=== PATIENT | female | born 1970 | race Caucasian/White ===

== ENCOUNTER 2016-12-25 11:42 | Inpatient (IN) | payer OTHER ==
[2016-12-25 12:55] VITALS: BMI 30.8
--- NOTE | 2016-12-25 17:37 | HP ---
CIWA Score - CIWA Score Nausea/Vomitin-Mild Nausea/No Vomiting Muscle Tremors: 3 Anxiety: 4-Mod. Anxious/Guarded Agitation: 4-Moderately Restless Paroxysmal Sweats: 1-Minimal Palms Moist Orientation: 1-Uncertain about Date Tacttile Disturbances: 0-None Auditory Disturbances: 0-None Visual Disturbances: 0-None Headache: 0-None Present CIWA-Ar Total Score: 14 Admission ROS BHS - HPI Chief Complaint: withdrawal sx Allergies/Adverse Reactions: Allergies Allergy/AdvReac Type Severity Reaction Status Date / Time No Known Allergies Allergy Verified 12/25/16 16:24 History of Present Illness: 46 years old female with long history of alcohol nicotine marijuana cocaine dependence has asthma and schizoaffective disorder is admitted to detox Exam Limitations: No Limitations - Ebola screening Have you traveled outside of the country in the last 21 days: No Have you had contact with anyone from an Ebola affected area: No Have you been sick,other than usual withdrawal symptoms: No Do you have a fever: No - Review of Systems Constitutional: Changes in sleep, Weight Stable EENT: reports: No Symptoms Reported Respiratory: reports: No Symptoms reported Cardiac: reports: No Symptoms Reported GI: reports: Nausea, Poor Fluid Intake, Abdominal cramping : reports: No Symptoms Reported Musculoskeletal: reports: No Symptoms Reported Integumentary: reports: No Symptoms Reported Neuro: reports: Tremors Endocrine: reports: No Symptoms Reported Hematology: reports: No Symptoms Reported Psychiatric: reports: Judgement Intact, Anxious, Depressed Other Systems: Reviewed and Negative Patient History - Patient Medical History Hx Anemia: No Hx Asthma: Yes (Pt is on MDi) Hx Chronic Obstructive Pulmonary Disease (COPD): No Hx Cancer: No Hx Cardiac Disorders: No Hx Congestive Heart Failure: No Hx Hypertension: No Hx Hypercholesterolemia: No Hx Pacemaker: No HX Cerebrovascular Accident: No Hx Seizures: No Hx Dementia: No Hx Diabetes: No Hx Gastrointestinal Disorders: No Hx Liver Disease: No Hx Genitourinary Disorders: No Hx Sexually Transmitted Disorders: No Hx Renal Disease (ESRD): No Hx Thyroid Disease: No Hx Human Immunodeficiency Virus (HIV): No Hx Hepatitis C: Yes Hx Depression: No Hx Suicide Attempt: Yes (Pt states she tried to overdose in 2016) Hx Bipolar Disorder: No Hx Schizophrenia: Yes - Patient Surgical History Past Surgical History: No - PPD History Previous Implant?: Yes Documented Results: Negative w/o proof Implanted On Prior [facility] Admission?: No PPD to be Administered?: Yes - Reproductive History Patient is a Female of Child Bearing Age (11 -55 yrs old): Yes Last Menstrual Period: 12/10/16 Patient : No - Smoking Cessation Smoking history: Current every day smoker Have you smoked in the past 12 months: Yes Aproximately how many cigarettes per day: 10 Cigars Per Day: 0 Hx Chewing Tobacco Use: No Initiated information on smoking cessation: Yes 'Breaking Loose' booklet given: 12/25/16 - Substance & Tx. History Hx Alcohol Use: Yes Hx Substance Use: Yes Substance Use Type: Alcohol, Cocaine, Marijuana Hx Substance Use Treatment: Yes (2014) - Substances Abused Alcohol Route: Oral Frequency: Daily Amount used: 4 22 oz beers Age of first use: 27 Date of Last Use: 12/25/16 Cocaine Route: Injection Frequency: 1-3 times last 30 days Amount used: 1/2 gram Age of first use: 30 Date of Last Use: 12/23/16 Marijuana/Hashish Route: Smoking Frequency: 1-3 times last 30 days Amount used: 1 blunt Age of first use: 18 Date of Last Use: 12/23/16 Heroin Route: Injection Frequency: 1-3 times last 30 days Amount used: 1 bag Age of first use: 35 Date of Last Use: 12/23/16 Family Disease History - Family Disease History Family Disease History: Heart Disease: Father, Other: Sister (legally blind) Admission Physical Exam BHS - Vital Signs Vital Signs: Vital Signs - 24 hr 12/25/16 12:52 Temperature 97.8 F Pulse Rate 77 Respiratory 18 Rate Blood Pressure 118/73 - Physical General Appearance: Yes: Appropriately Dressed, Mild Distress, Obese, Tremorous , Irritable, Sweating, Anxious HEENTM: Yes: Hearing grossly Normal, Normal ENT Inspection, Normocephalic, Normal Voice Respiratory: Yes: Chest Non-Tender, No Respiratory Distress, No Accessory Muscle Use, Wheezing Neck: Yes: Supple, Trachea in good position Breast: Yes: Breasts Symetrical Cardiology: Yes: Regular Rhythm, Regular Rate, S1, S2 Abdominal: Yes: Normal Bowel Sounds, Non Tender, Soft Genitourinary: Yes: Within Normal Limits Back: Yes: Normal Inspection Musculoskeletal: Yes: full range of Motion, Gait Steady Extremities: Yes: Normal Range of Motion, Non-Tender, Tremors Neurological: Yes: Alert, Motor Strength 5/5, Normal Response, Depressed Affect Integumentary: Yes: Warm, Track [place] Lymphatic: Yes: Within Normal Limits - Diagnostic (1) Alcohol dependence with uncomplicated withdrawal Current Visit: Yes Status: Acute (2) Nicotine dependence Current Visit: Yes Status: Acute Qualifiers: Nicotine product type: cigarettes Substance use status: in withdrawal Qualified Code(s): F17.213 - Nicotine dependence, cigarettes, with withdrawal (3) Asthma Current Visit: Yes Status: Chronic Qualifiers: Asthma severity: unspecified severity Asthma complication type: with status asthmaticus (4) Methadone maintenance therapy patient Current Visit: Yes Status: Chronic Comment: 60 mg (5) Schizoaffective disorder Current Visit: Yes Status: Suspected (6) History of hepatitis C Current Visit: Yes Status: Resolved Comment: treated Cleared for Admission [facility] - Detox or Rehab [facility] Level of Care: Medically Managed Detox Regimen/Protocol: Librium [facility] Breath Alcohol Content Breath Alcohol Content: 0 Urine Pregancy Test - Result Urine Test Results: Negative- NO Line Present Urine Drug Screen - Results Drug Screen Negative: No Urine Drug Screen Results: THC-Marijuana, RANDALL-Cocaine, OPI-Opiates, MTD- Methadone
[2016-12-25] MEDS ORDERED: LOPERAMIDE HCL 2 MG CAPSULE PO PRN (17:38)
[2016-12-25] MEDS ORDERED: MAG HYDROX/AL HYDROX/SIMETH 30 ML UNIT-DOSE CUP PO PRN (17:38)
[2016-12-25] MEDS ORDERED: ACETAMINOPHEN 325 MG TABLET (FP) PO PRN (17:38)
[2016-12-25] MEDS ORDERED: MAGNESIUM HYDROX 2400MG/30ML ORAL SUSPENSION 30 ML CUP PO PRN (17:38)
[2016-12-25] MEDS ORDERED: chlordiazePOXIDE HCL 25 MG CAPSULE PO PRN (17:38)
[2016-12-25] MEDS ORDERED: MAGNESIUM CITRATE 300 ML BOTTLE PO PRN (17:38)
[2016-12-25] MEDS ORDERED: IBUPROFEN 400 MG TABLET (FP) PO PRN (17:38)
[2016-12-25] MEDS ORDERED: P-EPHED 60MG/TRIPROLIDI 2.5MG TABLET PO PRN (17:38)
[2016-12-25] MEDS ORDERED: MENTHOL/PHENOL 1 EACH UD MM PRN (17:38)
[2016-12-25] MEDS ORDERED: guaiFENesin/D-METHORPHAN HB 10 ML UNIT-DOSE CUPS PO PRN (17:38)
[2016-12-25] MEDS ORDERED: ALBUTEROL SO4 18 GM HFA INHALER IH PRN (17:39)
[2016-12-25] MEDS: THIAMINE HCL 100 MG TABLET (FP) PO SCH (22:07)
[2016-12-25] MEDS: chlordiazePOXIDE HCL 25 MG CAPSULE PO SCH (22:08)
[2016-12-25 23:40] LABS: URINE APPEARANCE CLOUDY; URINE BILIRUBIN NEGATIVE (NEGATIVE); URINE BLOOD NEGATIVE (NEGATIVE); URINE COLOR DKYELLOW; URINE GLUCOSE (UA) NEGATIVE (NEGATIVE); URINE KETONE NEGATIVE (NEGATIVE); URINE NITRITE NEGATIVE (NEGATIVE); URINE PROTEIN NEGATIVE (NEGATIVE); URINE UROBILINOGEN NEGATIVE mg/dL (0.2-1.0)
[2016-12-26] MEDS: chlordiazePOXIDE HCL 25 MG CAPSULE PO SCH ×4 (06:17→22:07)
[2016-12-26] MEDS ORDERED: METHADONE HCL 10 MG TABLET PO SCH (07:45)
[2016-12-26] MEDS ORDERED: METHADONE HCL 10 MG TABLET ONE (09:25)
[2016-12-26] MEDS ORDERED: METHADONE HCL 40 MG DISPERSABLE TABLET ONE (09:25)
--- NOTE | 2016-12-26 09:31 | PN ---
S CIWA - CIWA Score Nausea/Vomitin Muscle Tremors: 3 Anxiety: 3 Agitation: 3 Paroxysmal Sweats: 1-Minimal Palms Moist Orientation: 0-Oriented Tacttile Disturbances: 1-Very Mild Itch/Numbness Auditory Disturbances: 1-Very Mild Visual Disturbances: 0-None Headache: 2-Mild CIWA-Ar Total Score: 17 BHS Progress Note (SOAP) Subjective: alert,irritable,anxious,interrupted sleep,tremor pain in the body and back Objective: 12/26/16 09:29 Vital Signs Temperature 98.2 F 12/26/16 06:00 Pulse Rate 73 12/26/16 06:00 Respiratory Rate 16 12/26/16 06:00 Blood Pressure 122/77 12/26/16 06:00 O2 Sat by Pulse Oximetry (%) ekg nsr inverted t in v1 ,v2,v3 no chest pain,no sob,no dizziness Laboratory Last Values Urine Color Dkyellow 12/25/16 23:20 Urine Appearance Cloudy 12/25/16 23:20 Urine pH 5.0 (5.0-8.0) 12/25/16 23:20 Ur Specific [place] 1.029 (1.001-1.035) 12/25/16 23:20 Urine Protein Negative (NEGATIVE) 12/25/16 23:20 Urine Glucose (UA) Negative (NEGATIVE) 12/25/16 23:20 Urine Ketones Negative (NEGATIVE) 12/25/16 23:20 Urine Blood Negative (NEGATIVE) 12/25/16 23:20 Urine Nitrite Negative (NEGATIVE) 12/25/16 23:20 Urine Bilirubin Negative (NEGATIVE) 12/25/16 23:20 Urine Urobilinogen Negative mg/dL (0.2-1.0) 12/25/16 23:20 labs pending Assessment: 12/26/16 09:30 withdrawal symptom Plan: continue detox,
[2016-12-26 09:58] LABS: MCH 28.7 pg (25.7-33.7); MCHC 32.1 g/dl (32.0-36.0); MEAN CELL VOLUME 89.4 fl (80-96); MEAN PLT VOLUME 8.1 fl (7.5-11.1); PLATELET COUNT 327 K/MM3 (134-434); RDW 12.8 % (11.6-15.6); WHITE BLOOD COUNT 7.3 K/mm3 (4.0-10.0)
[2016-12-26] MEDS ORDERED: METHADONE 40 MG, METHADONE 10 MG PO SCH ×3 (10:00)
[2016-12-26] MEDS: PRENATAL VITAMINS W/ FOLIC ACID TABLET (FP) PO SCH (10:06)
[2016-12-26] MEDS: METHADONE 40 MG, METHADONE 10 MG PO SCH (10:10)
[2016-12-26] MEDS: NICOTINE 14 MG/24 HOURS TOPICAL PATCH TD SCH (10:12)
[2016-12-26] MEDS: NICOTINE POLACRILEX 2 MG GUM BC PRN (10:12)
[2016-12-26 10:16] LABS: URINE LEUK ESTERASE Negative (NEGATIVE)
[2016-12-26 10:38] LABS: ALBUMIN 3.6 g/dl (3.4-5.0); ALK PHOS 52 U/L (45-117); ANION GAP 7 (8-16); BILIRUBIN,TOTAL 0.9 mg/dL (0.2-1.0); CALCIUM 8.3 mg/dL (8.5-10.1); CO2 27 mmol/L (21-32); CREATININE 0.8 mg/dL (0.55-1.02); GLUCOSE,RANDOM 72 mg/dL (74-106); SGOT/AST 7 U/L (15-37); SGPT/ALT 13 U/L (12-78); TOT PROT 7.1 g/dl (6.4-8.2)
[2016-12-26 11:52] LABS: HIV 1 & 2 AB NEGATIVE; HIV 1 AGp24 NEGATIVE
[2016-12-26] MEDS ORDERED: FLU VACCINE QUAD 60 MCG/0.5 ML (MDV 17-18) IM ONE (12:00)
--- NOTE | 2016-12-26 14:07 | CONSULT ---
[facility] Psychiatric Consult - Data Date of interview: 12/26/16 Admission source: [facility] Identifying data: First admission to [facility] for this 46 y/o femele seeking detox treatment on for heroin,cocaine,alcohol and marihuana dependence.Patient is single,mother of one,domiciled,unemployed and supported on SSI benefits. Substance Abuse History: Ms Maza endorses active use of alcohol,cocaine, marihuana and heroin as detailed in the following segment of [facility] report. Smoking history: Current every day smoker. Have you smoked in the past 12 months: Yes. Aproximately how many cigarettes per day: 10. Cigars Per Day: 0. Hx Chewing Tobacco Use: No. Initiated information on smoking cessation: Yes. 'Breaking Loose' booklet given: 12/25/16. - Substance & Tx. History. Hx Alcohol Use: Yes. Hx Substance Use: Yes. Substance Use Type: Alcohol, Cocaine , Marijuana. Hx Substance Use Treatment: Yes (2014). - Substances Abused. Alcohol. Route: Oral. Frequency: Daily. Amount used: 4 22 oz beers. Age of first use: 27. Date of Last Use: 12/25/16. Cocaine. Route: Injection. Frequency: 1-3 times last 30 days. Amount used: 1/2 gram. Age of first use: 30. Date of Last Use: 12/23/16. Marijuana/Hashish. Route: Smoking. Frequency: 1-3 times last 30 days. Amount used: 1 blunt. Age of first use: 18. Date of Last Use: 12/23/16. Heroin. Route: Injection. Frequency: 1-3 times last 30 days. Amount used: 1 bag. Age of first use: 35. Date of Last Use: 12/23/16 Medical History: Hepatitis C and bronchial asthma. Psychiatric History: Patient admits to a history of multiple psychiatric hospitalizations.Onset of mental illness : age 13.Diagnosed with Schizophrenia.Ms Maza is followed at [facility] outpatient program by Dr Corona.Patient states that she is prescribed risperdal,cogentin,zoloft, remeron and clonazepam.Admits to a history of suicide attempts (cutting and overdose with pills). Physical/Sexual Abuse/Trauma History: Domain not discussed in this session : patient declines. Additional Comment: Urine Drug Screen Results: THC-Marijuana, RANDALL-Cocaine, OPI- Opiates, MTD-Methadone.Noted. Mental Status Exam - Mental Status Exam Alert and Oriented to: Time, Place, Person Cognitive Function: Good Patient Appearance: Well Groomed (short stature) Mood: Hopeful, Euthymic Affect: Normal Range Patient Behavior: Fatigued, Appropriate, Cooperative Speech Pattern: Clear Voice Loudness: Normal Thought Process: Goal Oriented Thought Disorder: Not Present Hallucinations: Denies Suicidal Ideation: Denies Homicidal Ideation: Denies Insight/Judgement: Poor Sleep: Poorly, Difficulty falling asleep Appetite: Good Muscle strength/Tone: Normal Gait/Station: Normal Psychiatric Findings - Problem List ([place] 1, 2,3) (1) Alcohol dependence with uncomplicated withdrawal Current Visit: Yes Status: Acute (2) Nicotine dependence Current Visit: Yes Status: Acute Qualifiers: Nicotine product type: cigarettes Substance use status: in withdrawal Qualified Code(s): F17.213 - Nicotine dependence, cigarettes, with withdrawal (3) Cannabis abuse Current Visit: Yes Status: Acute (4) Cocaine abuse Current Visit: Yes Status: Acute (5) Substance induced mood disorder Current Visit: Yes Status: Acute (6) Schizophrenia Current Visit: Yes Status: Chronic (7) Insomnia Current Visit: Yes Status: Acute - Initial Treatment Plan Initial Treatment Plan: Psychoeducation.Detoxification.Sleep hygiene.Medications : risperdal 2 mg po hs + ambien 10 mg po hs prn + zoloft 100 mg po daily.Medications are verified via review of pharmacy claims of at [facility].Side effects/benefits of each drug are discussed with the patient.Made aware,in particular,of risperdal (akathisia,akinesia, dystonias,dyskinesias,NMS,cardiovascular adverse events,galactorrhea, gynecomastia and sexual dysfunction,parasomnias (ambien),suicidal ideation and decreased libido (zoloft).Patient reports good tolerability and efficacy.Requests continuation of these drugs in this hospital course.Observation.NO scripts required at discharge from [facility] (adequate refills from OPD provider).
[2016-12-26] MEDS ORDERED: ZOLPIDEM TARTRATE 10 MG TABLET (PARK CARE ONLY) PO PRN (22:00)
[2016-12-26] MEDS ORDERED: risperiDONE 2 MG TABLET PO SCH (22:00)
[2016-12-26] MEDS: THIAMINE HCL 100 MG TABLET (FP) PO SCH (22:07)
[2016-12-27] MEDS ORDERED: METHADONE HCL 40 MG DISPERSABLE TABLET ONE (04:06)
[2016-12-27] MEDS ORDERED: METHADONE HCL 10 MG TABLET ONE (04:06)
[2016-12-27] MEDS: chlordiazePOXIDE HCL 25 MG CAPSULE PO SCH ×3 (05:07→17:40)
[2016-12-27] MEDS: METHADONE 40 MG, METHADONE 10 MG PO SCH (05:07)
--- NOTE | 2016-12-27 09:26 | PN ---
S CIWA - CIWA Score Nausea/Vomitin Muscle Tremors: 3 Anxiety: 3 Agitation: 3 Paroxysmal Sweats: 1-Minimal Palms Moist Orientation: 0-Oriented Tacttile Disturbances: 1-Very Mild Itch/Numbness Auditory Disturbances: 1-Very Mild Visual Disturbances: 0-None Headache: 2-Mild CIWA-Ar Total Score: 17 BHS Progress Note (SOAP) Subjective: ALERT,IRRITABLE,ANXIOUS,INTERRUPTED SLEEP,TREMOR,POOR APPETITE Objective: 12/27/16 09:22 Vital Signs Temperature 97.7 F 12/27/16 06:14 Pulse Rate 78 12/27/16 06:14 Respiratory Rate 18 12/27/16 06:14 Blood Pressure 110/69 12/27/16 06:14 O2 Sat by Pulse Oximetry (%) 12/27/16 09:22 Laboratory Last Values WBC 7.3 K/mm3 (4.0-10.0) 12/26/16 07:00 RBC 4.65 M/mm3 (3.60-5.2) 12/26/16 07:00 Hgb 13.3 GM/dL (10.7-15.3) 12/26/16 07:00 Hct 41.6 % (32.4-45.2) 12/26/16 07:00 MCV 89.4 fl (80-96) 12/26/16 07:00 MCH 28.7 pg (25.7-33.7) 12/26/16 07:00 MCHC 32.1 g/dl (32.0-36.0) 12/26/16 07:00 RDW 12.8 % (11.6-15.6) 12/26/16 07:00 Plt Count 327 K/MM3 (134-434) 12/26/16 07:00 MPV 8.1 fl (7.5-11.1) 12/26/16 07:00 Sodium 139 mmol/L (136-145) 12/26/16 07:00 Potassium 4.4 mmol/L (3.5-5.1) 12/26/16 07:00 Chloride 105 mmol/L (98-107) 12/26/16 07:00 Carbon Dioxide 27 mmol/L (21-32) 12/26/16 07:00 Anion Gap 7 (8-16) L 12/26/16 07:00 BUN 13 mg/dL (7-18) 12/26/16 07:00 Creatinine 0.8 mg/dL (0.55-1.02) 12/26/16 07:00 Creat Clearance w eGFR > 60 (>60) 12/26/16 07:00 Random Glucose 72 mg/dL (74-106) L 12/26/16 07:00 Calcium 8.3 mg/dL (8.5-10.1) L 12/26/16 07:00 Total Bilirubin 0.9 mg/dL (0.2-1.0) 12/26/16 07:00 AST 7 U/L (15-37) L 12/26/16 07:00 ALT 13 U/L (12-78) 12/26/16 07:00 Alkaline Phosphatase 52 U/L (45-117) 12/26/16 07:00 Total Protein 7.1 g/dl (6.4-8.2) 12/26/16 07:00 Albumin 3.6 g/dl (3.4-5.0) 12/26/16 07:00 Urine Color Dkyellow 12/25/16 23:20 Urine Appearance Cloudy 12/25/16 23:20 Urine pH 5.0 (5.0-8.0) 12/25/16 23:20 Ur Specific [place] 1.029 (1.001-1.035) 12/25/16 23:20 Urine Protein Negative (NEGATIVE) 12/25/16 23:20 Urine Glucose (UA) Negative (NEGATIVE) 12/25/16 23:20 Urine Ketones Negative (NEGATIVE) 12/25/16 23:20 Urine Blood Negative (NEGATIVE) 12/25/16 23:20 Urine Nitrite Negative (NEGATIVE) 12/25/16 23:20 Urine Bilirubin Negative (NEGATIVE) 12/25/16 23:20 Urine Urobilinogen Negative mg/dL (0.2-1.0) 12/25/16 23:20 Ur Leukocyte Esterase Negative (NEGATIVE) 12/25/16 23:20 RPR Titer Nonreactive (NONREACTIVE) 12/26/16 07:00 HIV 1&2 Antibody Screen Negative 12/26/16 07:00 HIV P24 Antigen Negative 12/26/16 07:00 Assessment: 12/27/16 09:26 WITHDRAWAL SYMPTOM Plan: CONTINUE DETOX
[2016-12-27] MEDS ORDERED: SERTRALINE HCL 50 MG TABLET (FP) PO SCH (10:00)
[2016-12-27] MEDS: PRENATAL VITAMINS W/ FOLIC ACID TABLET (FP) PO SCH (10:06)
[2016-12-27] MEDS: NICOTINE 14 MG/24 HOURS TOPICAL PATCH TD SCH (10:07)
[2016-12-27] MEDS: NICOTINE POLACRILEX 2 MG GUM BC PRN ×2 (10:07→13:16)
--- NOTE | 2016-12-27 11:38 | EKG ---
Test Reason : Blood Pressure : / mmHG Vent. Rate : 077 BPM Atrial Rate : 077 BPM P-R Int : 166 ms QRS Dur : 088 ms QT Int : 388 ms P-R-T Axes : 049 061 039 degrees QTc Int : 439 ms NORMAL SINUS RHYTHM NONSPECIFIC T WAVE ABNORMALITY ABNORMAL ECG NO PREVIOUS ECGS AVAILABLE Confirmed by ADRIAN MILNER MD ([id number]) on 12/27/2016 11:38:22 AM Referred By: Confirmed By:ADRIAN MILNER MD
[2016-12-27 17:58] VITALS: BP 104/60; PULSE 96; TEMP 97.7
--- NOTE | 2016-12-27 18:24 | DS ---
[facility] Detox Discharge Summary Admission Date: 12/25/16 Discharge Date: 12/27/16 - History Present History: Alcohol Dependence, Cannabis Dependence, MMTP Additional Comments: patient refusing to complete detox, met with counselor risk fo signing out ama discussed Pertinent Past History: multiple medical comorbidities - Physical Exam Results Vital Signs: Vital Signs Temperature 97.7 F 12/27/16 17:57 Pulse Rate 96 H 12/27/16 17:57 Respiratory Rate 18 12/27/16 17:57 Blood Pressure 104/60 12/27/16 17:57 O2 Sat by Pulse Oximetry (%) Laboratory Tests 12/25/16 12/26/16 12/26/16 23:20 07:00 07:00 WBC 7.3 RBC 4.65 Hgb 13.3 Hct 41.6 MCV 89.4 MCH 28.7 MCHC 32.1 RDW 12.8 Plt Count 327 MPV 8.1 Sodium Potassium Chloride Carbon Dioxide Anion Gap BUN Creatinine Creat Clearance w eGFR Random Glucose Calcium Total Bilirubin AST ALT Alkaline Phosphatase Total Protein Albumin Urine Color Dkyellow Urine Appearance Cloudy Urine pH 5.0 Ur Specific [place] 1.029 Urine Protein Negative Urine Glucose (UA) Negative Urine Ketones Negative Urine Blood Negative Urine Nitrite Negative Urine Bilirubin Negative Urine Urobilinogen Negative Ur Leukocyte Esterase Negative RPR Titer HIV 1&2 Antibody Screen Negative HIV P24 Antigen Negative 12/26/16 12/26/16 07:00 07:00 WBC RBC Hgb Hct MCV MCH MCHC RDW Plt Count MPV Sodium 139 Potassium 4.4 Chloride 105 Carbon Dioxide 27 Anion Gap 7 L BUN 13 Creatinine 0.8 Creat Clearance w eGFR > 60 Random Glucose 72 L Calcium 8.3 L Total Bilirubin 0.9 AST 7 L ALT 13 Alkaline Phosphatase 52 Total Protein 7.1 Albumin 3.6 Urine Color Urine Appearance Urine pH Ur Specific [place] Urine Protein Urine Glucose (UA) Urine Ketones Urine Blood Urine Nitrite Urine Bilirubin Urine Urobilinogen Ur Leukocyte Esterase RPR Titer Nonreactive HIV 1&2 Antibody Screen HIV P24 Antigen Pertinent Admission Physical Exam Findings: withdrawawl sx - Treatment Hospital Course: Detox Protocol Followed Patient has Accepted a Rehab Referral to: no - Medication Discharge Medications: Ambulatory Orders Albuterol Sulfate Inhaler - [Ventolin HFA Inhaler -] 2 inh PO Q4H PRN 12/25/16 Mirtazapine [Remeron -] 15 mg PO HS 12/25/16 Risperidone [Risperdal -] 2 mg PO HS 12/25/16 Sertraline HCl [Zoloft -] 100 mg PO DAILY 12/25/16 - Diagnosis (1) Alcohol dependence with uncomplicated withdrawal Current Visit: Yes Status: Acute (2) Cannabis abuse Current Visit: Yes Status: Acute (3) Cocaine abuse Current Visit: Yes Status: Acute (4) Insomnia Current Visit: Yes Status: Acute (5) Nicotine dependence Current Visit: Yes Status: Acute Qualifiers: Nicotine product type: cigarettes Substance use status: in withdrawal Qualified Code(s): F17.213 - Nicotine dependence, cigarettes, with withdrawal (6) Substance induced mood disorder Current Visit: Yes Status: Acute (7) Asthma Current Visit: Yes Status: Chronic Qualifiers: Asthma severity: unspecified severity Asthma complication type: with status asthmaticus (8) Methadone maintenance therapy patient Current Visit: Yes Status: Chronic (9) Schizoaffective disorder Current Visit: Yes Status: Suspected (10) History of hepatitis C Current Visit: Yes Status: Resolved - AMA Did Patient Leave Against Medical Advice: Yes
[2016-12-27] MEDS ORDERED: chlordiazePOXIDE 5 MG CAPSULE PO SCH (23:00)
[2016-12-28] MEDS ORDERED: chlordiazePOXIDE HCL 10 MG CAPSULE PO SCH (23:00)
== END 2016-12-27 18:50 | disposition left against medical advice (07) | DRG 770 ==
LOC: YASAS 11:42 → Y6N 17:42
PROVIDERS: ADMIT Internal Medicine; ATTEND Internal Medicine
PROC: HZ2ZZZZ Detoxification Services for Substance Abuse Treatment (ICD-10-PCS; principal; 2016-12-25)
DX: F10.230 Alcohol dependence with withdrawal, uncomplicated (principal); F11.20 Opioid dependence, uncomplicated; F14.10 Cocaine abuse, uncomplicated; F12.10 Cannabis abuse, uncomplicated; F17.213 Nicotine dependence, cigarettes, with withdrawal; F19.24 Other psychoactive substance dependence with psychoactive substance-induced mood disorder; F25.9 Schizoaffective disorder, unspecified; J45.909 Unspecified asthma, uncomplicated; B18.2 Chronic viral hepatitis C; G47.00 Insomnia, unspecified; E66.9 Obesity, unspecified; Z68.30 Body mass index [BMI] 30.0-30.9, adult; Z91.5 Personal history of self-harm
CPT/HCPCS: 36415; 80053; 81003; 85027; 86593; 87389; 93005; 93010